=== PATIENT | male | born 1995 | race Caucasian/White ===

== ENCOUNTER 2017-12-21 09:03 | Day surgery (SDC) | payer OTHER ==
--- NOTE | 2017-12-20 21:22 | PDGENHP ---
History and Physical - Chief Complaint LEFT HIP PAIN - History of Present Illness Diagnosis: 1. Left~Femoroacetabular impingement (RJ) Cam type, with~resultant labral tear~ 2. ~~Right Hip arthroscopy March 2017 3. ~~Right hip joint space narrowing; ~20% HISTORY OF PRESENT ILLNESS: Kileyis a 22 y.o.~very ~active male~who I have had the pleasure to consult on today. I have enjoyed meeting him. He~lives in [place]. 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 ~He~is single; he~has no~ children. 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 Wong's~left~hip pain~started in May 2017, with no~recalled trauma or injury , and with no~previous complaints. Kileydoes not have~a known history of hip dysplasia. On April 03, 2017 he had a Right Hip arthroscopy in [place], ~Dr. Chris Villaseñor, ~which resolved 90% of his pain Presentation today is of anterior and posterior left~hip pain.~~The hip does not ~wake him~at night and does not~click and catch on him. Sitting does not present a problem~for him. Kileydoes not~report suffering from lower back pain episodes. Kileyhas~participated in physical therapy (March until present)~and has not~ tried other conservative measures. He~has not~received sufficient symptomatic improvement. Kileyhas not~utilized medication for pain management. Kileydenies issues with the right~hip. ~ Kileyunderstands that he~has a hip and pelvis problem which should be researched and wishes to get a better understanding of his~hip status, followed by an establishment of a treatment strategy, hoping heAyadwould be able to get back to his~well being active life. History: Past medical history: ~ None which is relevant Relevant familial history: None which is relevant Past surgical history: No. Surgery Anesthesia 1 Right Hip arthroscopy general 2 Liver cyst excision general Kileydenies problematic issues with general anesthesia in the past. I have reviewed, verified and agree with the past medical, surgical, family and social history. Current Medications:~currently has no medications in their medication list. ALLERGIES:~has No Known Allergies. Objective: Physical Examination: Kileyis 5~feet 7~inches tall and weighs 145~Lbs. Wong~is AAO x3; he~is well-nourished, in NAD. Skin is warm and dry. ~Breathing is non-labored. ~CV with RRR by pulse. Abdomen is soft, NTND. Currently, he~walks with a normal~gait. Trendelenburg sign is negative~and proprioception is normal, both~sides. He~presents with moderate~signs of joint laxity. Beightons Score: 8 Lower spine examination is negative~for sciatic or femoral nerve irritation with negative~SLR &~femoral stretch tests. Range of motion of the spine is normal~for flexion, extension, and rotations, with no~associated pain. Strength, Sensation and pulses are normal - bilaterally Ankles and knees exams are normal~and no~mal-alignment is evident. He~has right~0.25~cm short leg length discrepancy. Thigh circumference is asymmetric~with intermediate~muscle atrophy~on right~ side. Hip ROM (degrees): FL ER At 90~hip FL IR At 90~hip FL AB AD EX IR Neutral hip ER Neutral hip R 115 40 30 35 10 20 40 45 L 110 40 35 40 5 10 45 35 Specific hip and pelvis tests: Quadrant KELLY Roll Add. Longus R Post-surgical Post-surgical Negative Negative L +++ +++ Negative Negative Glut. Med ITB Pos. Imp R Negative 5/5 strength Negative 5/5 strength Negative L Negative 5/5 strength Negative 5/5 strength Negative Squeeze test measured normal Bony Symphysis pubis is pain free~to touch while concentric activity of the rectus abdominis, does not~produce pain at its insertion. Ilio Psos specific tests are negative for pain during cycling for both hips~and unremarkable for snap. HF has right-sided weakness~ Greater trochanteric burse is pain free~on both hips. Piriformis tests: FAIR is negative, with no~local signs of neuritis related to sciatic nerve. SIJs examination is normal~with normal~KELLY in relation and local tenderness. Hamstrings tests are negative~functional contraction and negative~tendinopathy both hips. Imaging: Radiology studies which I have personally reviewed, analyzed and measured are below: XR: AP of the hip and pelvis: Performed in a good~technique Coccyx to pubic symphysis distance 1~cm. 15~degrees [place] Lines are preserved. Minimal~Pathological signs are seen in the Symphysis Pubis. Minimal~Pathological signs are seen at the Ischial tuberosity. ~ Specific measurements show: NSA~ LCE Sourcil~Angle Sharp's angle Lat. Cam Lat. Pincer C.Over~sign Head~Coverage % ATDmm R N 34 3 38 - - - N N L N 35 2 37 + - - N N Pos. wall sign ISS NAD ~~Dysplasia Comments R Negative Negative 9.8~mm Negative L Negative Negative 14~mm Negative Sclerosis Sup. Lat. OA Cysts Joint Space-WBZ Joint Space-Medial R Negative Negative Negative 3.3~mm 3.0~mm L Negative Negative Negative 4.0~mm 3.8~mm X Table lateral: Anterior cam lesion is seen~on the left hip. Alpha Angle: ~ Right - Normal Left 64~degrees MRI was done but Wong did not have images today. Impression and plan: Wong~is a 22 y.o.~active male~suffering from symptomatic left~hip pain due to Left~Femoroacetabular impingement (RJ) Cam type, with~resultant labral tear~ causing significant disability to him~and altering his~sport and life activities. Physical examination, imaging, and his~story correspond with the diagnosis mentioned above. I explained that femoroacetabular impingement (RJ) arises due to a bony or soft tissue conflict between the femur (ball) and acetabulum (socket) caused by an abnormality in the shape of the hip joint. Over time, repetitive impingement can result in damage to the labrum and adjacent surface cartilage within the socket, ultimately giving rise to progressive osteoarthritis of the hip. I explained that although a labral tear can be a source of pain, it is rarely the root of the problem and typically occurs secondary to an underlying abnormality in the shape and mechanics of the hip joint. ~ I reviewed conservative treatment options for RJ including activity modification to avoid positions of impingement, physical therapy, non-steroidal anti-inflammatory medications, and various injections (corticosteroid and PRP) aimed at reducing inflammation in the hip joint or/and preventing dynamic impingement.~PRP injections may promote healing and reduce symptoms in certain cases but it will not repair chronically damaged tissue. Although these measures may help to buy time and reduce current level of symptoms, they are not a definitive solution to the problem given the underlying abnormality in the shape of the hip joint. With the right sided joint space narrowing, the addition of PRP may promote healing especially in the context of his high activity level. Patients who have failed conservative management and continue to experience symptoms are candidates for hip arthroscopy, a minimally invasive surgery that can definitively address the underlying problem. Hip arthroscopy typically includes treating the labrum with either repair or reconstruction of the torn labrum; as well as addressing the underlying abnormalities by restoring the normal shape to the hip joint. ~If the cartilage is damaged a Microfracture surgical procedure may also be necessary to help stimulate the growth of fibrocartilage. ~If a patient requires a labral reconstruction or a Microfracture, the initial rehabilitation from the surgery may take longer, but the terminal system operator results are typically favorable. I reviewed the technical aspects of hip arthroscopy including risks, benefits, and expected course of recovery. Wong~understands that hip arthroscopy is a minimally invasive outpatient procedure carried out through small incisions on the outer aspect of the hip joint. During surgery, the labral tear will be identified and either repaired or reconstructed~using bone anchors and suture material. Additionally, any excessive bone will be removed with a high-speed annika to reshape the hip joint and restore normal anatomy. Risks include infection, bleeding, injury to nearby nerves or vessels, stiffness, persistent pain, instability, venous thromboembolic disease, and traction related complications including temporary foot numbness. Rarely, revision surgery may be required to address these problems. Overall recovery takes approximately 4~ 8~months depending on the extent of damage and degree of repair. In the event that the labral tissue quality is inadequate for successful repair and healing, Wong~understands that a labral reconstruction will be performed. This procedure entails placing a cadaver tissue graft within the hip joint and stabilizing it with bone anchors to build a new labrum. The overall recovery time for labral reconstruction is similar to that of labral repair, although the surgical procedure takes longer to perform. Wong~will review the info presented. In order to obtain more detailed information regarding the alignment, orientation, and shape of the bony hip and pelvis I will order a CT scan to be performed. The results of the CT scan, including femoral torsion and acetabular version measured values and 3D images, will aid me in deciding on the best treatment strategy and surgical pre-planning. Wong will get us the MRI images, the surgical report from the Right Hip arthroscopy as well as the pictures from the surgery. Wong~will contact us if he~wishes to pursue further treatment in the future. Wong~is happy with this plan. I have also supplied him~with handouts, outlining the expected surgical treatment and rehab involved. I wish~Kileyall the best, ~~ Antonio Rodriguez, PAC History Information - Allergies/Home Medication List Allergies/Adverse Reactions: No Known Allergies Allergy (Verified 11/19/17 14:17) I have personally reviewed and updated: medical history - Social History Smoking Status: Never smoked Review of Systems Review of Systems: Physical Exam Physical Exam:
[2017-12-21] MEDS ORDERED: PREGABALIN 150 MG CAP PO ONE (09:12)
[2017-12-21] MEDS ORDERED: ACETAMINOPHEN 500 MG TAB PO ONE (09:12)
[2017-12-21] MEDS ORDERED: ceFAZolin 2 GM/SWFI 2 GM/20 ML SYR IVP ONE (09:12)
[2017-12-21] MEDS ORDERED: LIDOCAINE 1% 2 ML INJ ID PRN (09:13)
[2017-12-21] MEDS ORDERED: LR 1,000 ML IV ONE (09:13)
[2017-12-21 09:52] VITALS: PULSE 54
--- NOTE | 2017-12-21 10:07 | PDANEPAE ---
ANE History of Present Illness 22 year old male with RJ presents for left hip arthroscopy and femoroplasty. ANE Past Medical History - Cardiovascular History Hx Hypertension: No Hx Arrhythmias: No Hx Chest Pain: No Hx Coronary Artery / Peripheral Vascular Disease: No Hx CHF / Valvular Disease: No Hx Palpitations: No - Pulmonary History Hx COPD: No Hx Asthma/Reactive Airway Disease: No Hx Recent Upper Respiratory Infection: No Hx Oxygen in Use at Home: No Hx Sleep Apnea: No Sleep Apnea Screening Result - Last Documented: Negative - Neurologic History Hx Cerebrovascular Accident: No Hx Seizures: No Hx Dementia: No - Endocrine History Hx Diabetes: No Hypothyroid: No Hyperthyroid: No Obesity: no - Renal History Hx Renal Disorders: No - Liver History Hx Hepatic Disorders: No Hepatic History Comment: cyst on liver rupture/drained - Neurological & Psychiatric Hx Hx Neurological and Psychiatric Disorders: No - Cancer History Hx Cancer: No - Congenital Disorder History Hx Congenital Disorders: No - GI History Hx Gastrointestinal Disorders: No - Other Health History Other Health History: none - Chronic Pain History Chronic Pain: No - Surgical History Prior Surgeries: R hip scope/repair ANE Review of Systems Review of systems is: negative Review of Systems: - Exercise capacity Exercise capacity: >=4 METS METS (RN): 6 METS ANE Patient History - Allergies Allergies/Adverse Reactions: No Known Allergies Allergy (Verified 11/19/17 14:17) - NPO status NPO Status: no food or drink >8 hours NPO Since - Liquids (Date): 12/20/17 NPO Since - Liquids (Time): 20:00 NPO Since - Solids (Date): 12/20/17 NPO Since - Solids (Time): 20:00 - Anes Hx Anes Hx: no prior problems - Smoking Hx Smoking Status: Never smoked Marijuana use: No - Alcohol Use Alcohol Use: None - Family Anes Hx Family Anes Hx: none Family Hx Anesthesia Complications: none ANE Labs/Vital Signs - Vital Signs Vital Signs: reviewed preoperatively; see RN documention for details Blood Pressure: 117/72 Heart Rate: 54 Respiratory Rate: 14 O2 Sat (%): 99 Height: 170.18 cm Weight: 63.503 kg ANE Physical Exam - Airway Neck exam: FROM Mallampati Score: Class 1 Mouth exam: normal dental/mouth exam - Pulmonary Pulmonary: no respiratory distress - Cardiovascular Cardiovascular: regular rate and rhythym - ASA Status ASA Status: I ANE Anesthesia Plan Anesthesia Plan: general endotracheal anesthesia (Due to neuromonitoring, will be near TIVA, but not complete TIVA.) Total IV Anesthesia: No
[2017-12-21] MEDS ORDERED: EPINEPHrine 30 MG/30 ML MDV (0.1 MG/0.1 ML) ONE (11:22)
[2017-12-21] MEDS ORDERED: MIDAZOLAM 2 MG/2 ML VIAL IVP ONE (12:12)
--- NOTE | 2017-12-21 12:13 | PDANEPAE ---
ANE History of Present Illness left hip pain ANE Past Medical History - Cardiovascular History Hx Hypertension: No Hx Arrhythmias: No Hx Chest Pain: No Hx Coronary Artery / Peripheral Vascular Disease: No Hx CHF / Valvular Disease: No Hx Palpitations: No - Pulmonary History Hx COPD: No Hx Asthma/Reactive Airway Disease: No Hx Recent Upper Respiratory Infection: No Hx Oxygen in Use at Home: No Hx Sleep Apnea: No Sleep Apnea Screening Result - Last Documented: Negative - Neurologic History Hx Cerebrovascular Accident: No Hx Seizures: No Hx Dementia: No - Endocrine History Hx Diabetes: No - Renal History Hx Renal Disorders: No - Liver History Hx Hepatic Disorders: No Hepatic History Comment: cyst on liver rupture/drained - Neurological & Psychiatric Hx Hx Neurological and Psychiatric Disorders: No - Cancer History Hx Cancer: No - Congenital Disorder History Hx Congenital Disorders: No - GI History Hx Gastrointestinal Disorders: No - Other Health History Other Health History: none - Chronic Pain History Chronic Pain: No - Surgical History Prior Surgeries: R hip scope/repair ANE Review of Systems Review of Systems: - Exercise capacity METS (RN): 6 METS ANE Patient History - Allergies Allergies/Adverse Reactions: No Known Allergies Allergy (Verified 11/19/17 14:17) - NPO status NPO Since - Liquids (Date): 12/20/17 NPO Since - Liquids (Time): 20:00 NPO Since - Solids (Date): 12/20/17 NPO Since - Solids (Time): 20:00 - Smoking Hx Smoking Status: Never smoked - Family Anes Hx Family Hx Anesthesia Complications: none ANE Labs/Vital Signs - Vital Signs Blood Pressure: 117/72 Heart Rate: 54 Respiratory Rate: 14 O2 Sat (%): 99 Height: 170.18 cm Weight: 63.503 kg ANE Physical Exam - Airway Neck exam: FROM Mallampati Score: Class 1 Mouth exam: normal dental/mouth exam - Pulmonary Pulmonary: no respiratory distress - Cardiovascular Cardiovascular: regular rate and rhythym - ASA Status ASA Status: I ANE Anesthesia Plan Anesthesia Plan: general endotracheal anesthesia
[2017-12-21] MEDS ORDERED: fentaNYL 100 MCG/2 ML INJ ONE ×2 (13:19)
[2017-12-21] MEDS ORDERED: PROPOFOL 200 MG/20 ML VIAL ONE (13:19)
[2017-12-21] MEDS ORDERED: HYDROmorphONE/DILAUDID 2 MG/ML INJ ONE (13:19)
[2017-12-21] MEDS ORDERED: PROPOFOL/EMULSION 500 MG/50 ML BOTTLE IV ONE ×3 (13:19→15:55)
[2017-12-21] MEDS: BUPIVACAINE/EPI 0.5% 30 ML SDV ONE ×2 (14:35→14:43)
[2017-12-21] MEDS ORDERED: BUPIVACAINE 0.25% 30 ML SDV ONE (15:37)
[2017-12-21] MEDS ORDERED: NALOXONE HCL 0.4 MG/ML INJ IVP PRN (16:00)
[2017-12-21] MEDS ORDERED: OXYCODONE/APAP 5/325 TAB PO PRN (16:00)
[2017-12-21] MEDS ORDERED: fentaNYL 100 MCG/2 ML INJ IVP PRN (16:00)
[2017-12-21] MEDS ORDERED: HYDROmorphONE/DILAUDID 1 MG/ML INJ IVP PRN (16:00)
[2017-12-21] MEDS ORDERED: PROMETHAZINE HCL 25 MG/ML INJ IVP PRN (16:00)
[2017-12-21] MEDS ORDERED: DEXAMETHASONE 4 MG/ML VIAL IVP PRN (16:00)
[2017-12-21] MEDS ORDERED: MEPERIDINE 25 MG/ML SYR IVP ONE (17:07)
--- NOTE | 2017-12-21 17:08 | POSTANESTH ---
Post Anesthetic Evaluation Cardiovascular Status: Normal, Stable Respiratory Status: Normal, Stable Level of Consciousness/Mental Status: Can Participate in Eval Pain Control: Adequate, Prn Tx Ordered Nausea/Vomiting Control: Adequate, Prn Tx Ordered Complications Possibly Related to Anesthesia: None Noted
[2017-12-21] MEDS ORDERED: MEPERIDINE 25 MG/ML SYR ONE (17:09)
[2017-12-21 17:58] VITALS: TEMP 98.1
[2017-12-21 18:09] VITALS: RESP 12
[2017-12-21 19:29] VITALS: BP 138/77; O2SAT 96
== END 2017-12-21 19:25 | disposition home or self-care (01) ==
LOC: FSGY 09:03
PROVIDERS: ATTEND Orthopaedic Surgery Sports Medicine
PROC: 0SQB4ZZ Repair Left Hip Joint, Percutaneous Endoscopic Approach (ICD-10-PCS; principal; 2017-12-21 11:45)
DX: M25.852 Other specified joint disorders, left hip (principal)
CPT/HCPCS: C1713; J0171; J0690; J1170; J2175; J2250; J2704; J3010